=== PATIENT | female | born 1990 | race Caucasian/White ===

== ENCOUNTER 2017-11-21 14:42 | Emergency (ER) | payer OTHER ==
[~2017-11-21] VITALS: Ht 160 cm; Wt 54.8 kg
[~2017-11-21 14:42] MED LIST: Ascorbic Acid,Ester- PO; DEPO-PROVER150 MG/ML IM; DICLOFENAC SODI50 MG PO; Feosol PO; Flagyl PO; INDOCIN25 MG PO; KEPPRA500 MG PO; KEPPRA750 MG PO; KLOR-CON 1010 ME1 PO; Motrin PO; Prefera-OB Plus DHA PO; SERTRALINE HCL25 MG PO; ZOLOFT50 MG PO
[2017-11-21 15:56] VITALS: BP 121/95
== END 2017-11-21 15:59 | disposition home or self-care (01) ==
LOC: EME 14:42
PROC: 3E0T3BZ Introduction of Anesthetic Agent into Peripheral Nerves and Plexi, Percutaneous Approach (ICD-10-PCS; principal; 2017-11-21)
DX: K08.89 Other specified disorders of teeth and supporting structures (principal); F17.200 Nicotine dependence, unspecified, uncomplicated
CPT/HCPCS: 99281; 99283; S0020